=== PATIENT | female | born 1955 | race Caucasian/White ===

== ENCOUNTER 2016-10-20 10:04 | Emergency (ER) | payer OTHER ==
[~2016-10-20] VITALS: Ht 167.6 cm; Wt 70.0 kg
[~2016-10-20 10:04] MED LIST: ALPR0.5T99 PO; AMBI10TA PO; COUM5TAB PO; COUM7.5T PO
[2016-10-20 10:07] VITALS: BP 148/76; PULSE 80; RESP 15; TEMP 98.2; O2SAT 97
[2016-10-20] MEDS ORDERED: ALPR.5 PO (10:25)
[2016-10-20] MEDS ORDERED: WARF-23 PO (10:25)
[2016-10-20] MEDS ORDERED: AMBI10TA PO (10:25)
[2016-10-20] MEDS ORDERED: WARF-21 PO (10:25)
[2016-10-20] MEDS ORDERED: DEPA125T PO (10:25)
[2016-10-20 10:26] VITALS: O2SAT 96
--- NOTE | 2016-10-20 10:27 | PD ---
HPI Chief Complaint: Pain: Acute or Chronic Time Seen by Provider: 10:18 Travel History International Travel<30 days: No Contact w/Intl Traveler<30days: No Traveled to known affect area: No History of Present Illness HPI 61-year-old female with history of CVA on Coumadin, here for evaluation of left shoulder and left arm pain after a trip and fall that occurred yesterday evening. The patient tripped and landed on her left shoulder. She struck her for head, however denies LOC. She is now having a significant amount of pain in her left shoulder and arm which is constant. She is unable to move the shoulder because of the pain. The rest of her joints and extremities are without injury. Normal sensation in left upper extremity without paresthesias. No neck or back pain. PFSH Past Medical History Hx Anticoagulant Therapy: Yes (COUMADIN) Arthritis: Yes Asthma: No Blood Disorders: No Anxiety: Yes Depression: No Heart Rhythm Problems: No Cancer: Yes (malignant melanoma removed left bermudez) Cardiovascular Problems: No High Cholesterol: No Chest Pain: Yes Congestive Heart Failure: No COPD: No Cerebrovascular Accident: Yes Diabetes: No Diminished Hearing: No Endocrine: No Gastrointestinal Disorders: No Genitourinary: No Headaches: Yes Hepatitis: No Hiatal Hernia: No Hypertension: No Immune Disorder: Yes (anti phospho lipid syndrome) Implanted Vascular Access Dvce: No Musculoskeletal: Yes (minimal arthritis) Neurologic: Yes (stroke in 2010) Psychiatric: No Reproductive: No Respiratory: No Immunizations Current: Yes Sleep Apnea: No Thyroid Disease: No Influenza Vaccination: Yes ?: Not Menopausal: Yes Past Surgical History Abdominal Surgery: Yes (cholecystectomy) AICD: No Cholecystectomy: Yes Gynecologic Surgery: Yes (partial hysterectomy) Hysterectomy: Yes Joint Replacement: No Pacemaker: No Other Surgery: Yes Social History Alcohol Use: Yes (OCC) Tobacco Use: No Substance Use: No Allergies-Medications (Allergen,Severity, Reaction): Coded Allergies: No Known Allergies (Verified , 10/20/16) Reported Meds & Prescriptions Reported Meds & Active Scripts Active Reported Depakote DR (Divalproex Sodium) 125 Mg Tabdr 150 Mg PO DAILY Ambien (Zolpidem Tartrate) 10 Mg Tab 10 Mg PO HS PRN Warfarin 7.5 Mg Tab 7.5 Mg PO DAILY Warfarin 5 Mg Tab 5 Mg PO DAILY Xanax (Alprazolam) 0.5 Mg Tab 0.5 Mg PO HS PRN Review of Systems Except as stated in HPI: all other systems reviewed are Neg Physical Exam Narrative GENERAL: Pleasant, well-developed, well-nourished, awake, alert, GCS 15. SKIN: Warm and dry. Ecchymosis to left proximal/anterior arm. HEAD: Atraumatic. Normocephalic. EYES: Pupils equal and round. No scleral icterus. No injection or drainage. ENT: Mucous membranes pink and moist. NECK: Trachea midline. No JVD. No midline cervical spine step-off or tenderness. CARDIOVASCULAR: Regular rate and rhythm. Bilateral distal radial pulses are brisk and equal. RESPIRATORY: No accessory muscle use. MUSCULOSKELETAL: Moderate edema to proximal left arm/shoulder with no obvious bony deformity, with limited range of motion in left shoulder secondary to pain. Left shoulder and proximal humerus also diffusely tender, all compartments in LUE are supple. Bilateral clavicles are without step-off and without tenderness. The rest of her joints and extremities are without deformity, without tenderness, with normal range of motion. NEUROLOGICAL: Awake and alert. No obvious cranial nerve deficits. Motor grossly within normal limits. Normal speech. Normal sensation in left upper extremity. PSYCHIATRIC: Appropriate mood and affect; insight and judgment normal. Data Data Last Documented VS Vital Signs Date Time Temp Pulse Resp B/P Pulse Ox O2 Delivery O2 Flow Rate FiO2 10/20/16 10:26 96 Room Air 10/20/16 10:07 98.2 80 15 148/76 Orders Basic Metabolic Panel (Bmp) (10/20/16 10:22) Complete Blood Count With Diff (10/20/16 10:22) Prothrombin Time / Inr (Pt) (10/20/16 10:22) Act Partial Throm Time (Ptt) (10/20/16 10:22) Iv Access Insert/Monitor (10/20/16 10:22) Ecg Monitoring (10/20/16 10:22) Oximetry (10/20/16 10:22) Sodium Chloride 0.9% Flush (Ns Flush) (10/20/16 10:30) Ct Brain W/O Iv Contrast(Rout) (10/20/16 ) Humerus (Min 2vws) (10/20/16 ) Morphine Inj (Morphine Inj) (10/20/16 10:30) Shoulder, Limited(2vws) (10/20/16 ) Valproic Acid (Depakene) (10/20/16 10:22) Sling And Swathe (10/20/16 ) Labs Laboratory Tests Test 10/20/16 11:18 White Blood Count 10.0 TH/MM3 Red Blood Count 4.23 MIL/MM3 Hemoglobin 13.1 GM/DL Hematocrit 39.4 % Mean Corpuscular Volume 93.2 FL Mean Corpuscular Hemoglobin 31.0 PG Mean Corpuscular Hemoglobin 33.3 % Concent Red Cell Distribution Width 13.3 % Platelet Count 180 TH/MM3 Mean Platelet Volume 9.1 FL Neutrophils (%) (Auto) 85.8 % Lymphocytes (%) (Auto) 7.1 % Monocytes (%) (Auto) 6.5 % Eosinophils (%) (Auto) 0.0 % Basophils (%) (Auto) 0.6 % Neutrophils # (Auto) 8.6 TH/MM3 Lymphocytes # (Auto) 0.7 TH/MM3 Monocytes # (Auto) 0.7 TH/MM3 Eosinophils # (Auto) 0.0 TH/MM3 Basophils # (Auto) 0.1 TH/MM3 CBC Comment DIFF FINAL Differential Comment Prothrombin Time 20.3 SEC Prothromb Time International 1.8 RATIO Ratio Activated Partial 33.8 SEC Thromboplast Time Sodium Level 140 MEQ/L Potassium Level 4.4 MEQ/L Chloride Level 105 MEQ/L Carbon Dioxide Level 24.6 MEQ/L Anion Gap 10 MEQ/L Blood Urea Nitrogen 18 MG/DL Creatinine 0.84 MG/DL Estimat Glomerular Filtration 69 ML/MIN Rate Random Glucose 117 MG/DL Calcium Level 9.2 MG/DL Valproic Acid (Depakene) Level 15 MCG/ML MDM Medical Decision Making Medical Screen Exam Complete: Yes Emergency Medical Condition: Yes Differential Diagnosis Proximal humerus fracture versus dislocation, intracranial trauma Narrative Course Vital signs reviewed. CBC is unremarkable. BMP is unremarkable. INR is 1.8. Depakote level is 15. CT head read as stable examination. Multiple old lacunar infarcts, unchanged. Left shoulder and humerus x-ray show a humeral neck fracture. This was discussed with on-call orthopedic surgeon Dr. Hinds who recommends sling and swath and follow-up as an outpatient with orthopedics. The patient was made aware of all findings. Sling and swath placed. She was informed on when to return to the emergency department. She verbalizes understanding and agreement with plan. Diagnosis Primary Impression: Closed fracture of left proximal humerus Qualified Code: S42.202A - Closed fracture of proximal end of left humerus, unspecified fracture morphology, initial encounter Referrals: Sang Hinds MD 1 week Additional Instructions: Follow-up with orthopedic surgeon Dr. Hinds orthopedist of your choice this week. Return to the emergency department for worsening symptoms or any other concerns as discussed. Scripts Oxycodone-Acetaminophen (Percocet)10-325 mg Tab1 Tab PO Q6H PRN (PAIN) #20 TAB Ref 0 Prov:Paco Porter MD 10/20/16 Disposition: 01 DISCHARGE HOME Condition: Stable Paco Porter MD Oct 20, 2016 10:27
[2016-10-20] MEDS ORDERED: SODIUM CHLORIDE 0.9% FLUSH 5 ML FLUSH IVF PRN (10:30)
[2016-10-20] MEDS ORDERED: MORPHINE SULFATE 4 MG/ML INJ IV PUSH ONE ×2 (10:30→12:45)
--- NOTE | 2016-10-20 11:11 | RADRPT ---
EXAM DATE/TIME: 10/20/2016 10:56 [facility] COMPARISON: MRI BRAIN W/O CONTRAST, April 25, 2016, 9:24. INDICATIONS : Fall, on coumadin. RADIATION DOSE: 41.07 CTDIvol (mGy) MEDICAL HISTORY : Cerebrovascular disease. SURGICAL HISTORY : None. ENCOUNTER: Initial ACUITY: 1 day PAIN SCALE: 1/10 LOCATION: cranial TECHNIQUE: Multiple contiguous axial images were obtained of the head. Using automated exposure control and adj ustment of the mA and/or kV according to patient size, radiation dose was kept as low as reasonably a chievable to obtain optimal diagnostic quality images. FINDINGS: CEREBRUM: Small lacunar infarcts are noted bilaterally, unchanged . The ventricles are normal for age. No evid ence of midline shift, mass lesion, hemorrhage or acute infarction. No extra-axial fluid collections are seen. POSTERIOR FOSSA: The cerebellum and brainstem are intact. The 4th ventricle is midline. The cerebellopontine angle i s unremarkable. EXTRACRANIAL: The visualized portion of the orbits is intact. SKULL: The calvaria is intact. No evidence of skull fracture. CONCLUSION: Stable examination. Multiple old lacunar infarcts unchanged Jordi Villagran MD on October 20, 2016 at 11:09 Board Certified Radiologist. This report was verified electronically.
--- NOTE | 2016-10-20 11:13 | RADRPT ---
EXAM DATE/TIME: 10/20/2016 10:44 [facility] COMPARISON: No previous studies available for comparison. INDICATIONS : Pain from fall on concrete. MEDICAL HISTORY : None. SURGICAL HISTORY : None. ENCOUNTER: Initial ACUITY: 2 days PAIN SCORE: 10/10 LOCATION: Left lateral superior humerus. FINDINGS: Two view examination of the left humerus demonstrates a transverse fracture through the humeral neck with slight medial anterior displacement of the shaft compared to the head. CONCLUSION: Humeral neck fracture Jordi Villagran MD on October 20, 2016 at 11:12 Board Certified Radiologist. This report was verified electronically.
--- NOTE | 2016-10-20 11:13 | RADRPT ---
EXAM DATE/TIME: 10/20/2016 10:42 [facility] COMPARISON: No previous studies available for comparison. INDICATIONS : Pain from falling on concrete. MEDICAL HISTORY : None. SURGICAL HISTORY : None. ENCOUNTER: Initial ACUITY: 2 days PAIN SCORE: 10/10 LOCATION: Left anterior lateral shoulder. FINDINGS: Two view examination of the left shoulder demonstrates an oblique fracture of the humeral neck. Addit ional fracture of the greater tuberosity. Bony mineralization is normal. CONCLUSION: Humeral neck fracture with extension into the greater tuberosity Jordi Villagran MD on October 20, 2016 at 11:10 Board Certified Radiologist. This report was verified electronically.
[2016-10-20 11:44] LABS: AUTOMATED NEUTROPHIL # 8.6 TH/MM3 (1.8-7.7); BASOPHIL # 0.1 TH/MM3 (0-0.2); BASOPHIL % 0.6 % (0.0-2.0); HEMATOCRIT 39.4 % (35.0-46.0); HEMO FLAGS DIFF FINAL; LYMPH % 7.1 % (9.0-44.0); LYMPHOCYTE # 0.7 TH/MM3 (1.0-4.8); MEAN CELL VOLUME 93.2 FL (80.0-100.0); MEAN CORPUSCULAR HGB CONC 33.3 % (32.0-36.0); MONO % 6.5 % (0.0-8.0); NEUT % 85.8 % (16.0-70.0); PLATELET COUNT 180 TH/MM3 (150-450); RED BLOOD COUNT 4.23 MIL/MM3 (4.00-5.30); RED CELL DISTRIBUTION WIDTH 13.3 % (11.6-17.2)
[2016-10-20 11:52] LABS: APTT (PATIENT) 33.8 SEC (24.3-30.1); INTERNATIONAL NORMALIZED RATIO 1.8 RATIO; PROTHROMBIN TIME - PATIENT 20.3 SEC (9.8-11.6)
[2016-10-20 12:04] LABS: BICARBONATE 24.6 MEQ/L (21.0-32.0); POTASSIUM 4.4 MEQ/L (3.5-5.1)
[2016-10-20] MEDS ORDERED: PERC10TA27 PO (12:40)
== END 2016-10-20 13:59 | disposition home or self-care (01) ==
LOC: NEPA 10:04
DX: S42.292A Other displaced fracture of upper end of left humerus, initial encounter for closed fracture (principal); S42.255A Nondisplaced fracture of greater tuberosity of left humerus, initial encounter for closed fracture; Z79.01 Long term (current) use of anticoagulants; Z86.73 Personal history of transient ischemic attack (TIA), and cerebral infarction without residual deficits; W18.09XA Striking against other object with subsequent fall, initial encounter
CPT/HCPCS: 29240; 70450; 73030; 73060; 80048; 80164; 85025; 85610; 85730; 96374; 96376; 99284; J2270